=== PATIENT | female | born 1995 | race Caucasian/White ===

== ENCOUNTER 2021-05-17 15:54 | Emergency (ER) | payer OTHER ==
[2021-05-17 16:13] LABS: BASOPHILS % (AUTO) 0.3 %; EOSINOPHILS # (AUTO) 0.1 10^3/uL (0.0-0.7); EOSINOPHILS % (AUTO) 1.3 %; HCT - HEMATOCRIT 44.6 % (37.0-47.0); HGB - HEMOGLOBIN 14.7 g/dL (12.0-16.0); LYMPHOCYTES # (AUTO) 2.2 10^3/uL (1.5-3.5); MEAN CORPUSCULAR HEMOGLOBIN 30.2 pg (27.0-31.0); MEAN CORPUSCULAR VOLUME 91.8 fL (81.0-99.0); MEAN PLATELET VOLUME 9.9 fL (7.9-10.8); MONOCYTES # (AUTO) 0.8 10^3/uL (0.0-1.0); NEUTROPHILS # (AUTO) 6.5 10^3/uL (1.5-6.6); NEUTROPHILS % (AUTO) 67.1 %; PLT - PLATELET COUNT 293 10^3/uL (130-450); RED BLOOD COUNT 4.86 10^6/uL (4.20-5.40); RED CELL DISTRIBUTION WIDTH 12.3 % (12.0-15.0); WHITE BLOOD COUNT 9.8 x10^3/uL (4.8-10.8)
[2021-05-17 16:29] LABS: ALBUMIN 4.5 g/dL (3.2-5.5); ALBUMIN/GLOBULIN RATIO 1.4 (1.0-2.2); BILIRUBIN,TOTAL 0.6 mg/dL (0.2-1.0); CALCIUM 9.8 mg/dL (8.5-10.3); CREATININE 0.7 mg/dL (0.4-1.0); POTASSIUM 4.2 mmol/L (3.5-5.0); TOTAL PROTEIN 7.8 g/dL (6.7-8.2)
[2021-05-17 16:31] LABS: BILIRUBIN,URINE NEGATIVE (NEGATIVE); GLUCOSE, URINE (UA) NEGATIVE (NEGATIVE); KETONES,URINE (UA) NEGATIVE (NEGATIVE); LEUKOCYTE ESTERASE, URINE NEGATIVE (NEGATIVE); NITRITE,URINE NEGATIVE (NEGATIVE); OCCULT BLOOD,URINE NEGATIVE (NEGATIVE); PROTEIN,URINE NEGATIVE (NEGATIVE); UROBILINOGEN,URINE 0.2 (NORMAL) E.U./dL (NORMAL)
[2021-05-17 16:33] LABS: CLARITY,URINE CLEAR (CLEAR); HCG UR QUAL NEGATIVE
[2021-05-17 18:14] VITALS: BP 116/75
--- NOTE | 2021-05-17 18:26 | ED Physician Documentation ---
PD HPI ABD PAIN - Stated complaint Stated Complaint: BACK PX/NAUSEA - Chief complaint Chief Complaint: Abd Pain - History obtained from History obtained from: Patient - History of Present Illness Timing - onset: How many weeks ago (2) Timing - duration: Weeks (2) Timing - details: Gradual onset Pain level max: 6 Pain level now: 6 Quality: Aching, Pain Location: Suprapubic, Other (low back) Associated symptoms: No: Fever, Nausea, Vomiting, Hematemesis, Constipation, Melena, Hematochezia, Dysuria, Hematuria, Chest pain - Additional information Additional information: 25-year-old female presents to the emergency department with lower abdominal and back pain for the past 2 weeks. Comes and goes. Worse with movement, better with rest. No vaginal bleeding or discharge. She does not believe that there has been any STD exposure. No dysuria. She feels like she is urinating more frequently however. Review of Systems Constitutional: denies: Fever, Chills GI: denies: Diarrhea, Hematemesis, Bloody / black stool : reports: Frequency. denies: Dysuria, Hesitancy Skin: denies: Rash Musculoskeletal: denies: Neck pain Neurologic: denies: Focal weakness, Headache PD PAST MEDICAL HISTORY - Past Medical History Past Medical History: No - Past Surgical History Past Surgical History: No - Allergies Allergies/Adverse Reactions: Allergies Allergy/AdvReac Type Severity Reaction Status Date / Time No Known Drug Allergies Allergy Verified 05/17/21 15:59 - Social History Does the pt smoke?: No Smoking Status: Never smoker PD ED PE NORMAL - Vitals Vital signs reviewed: Yes - General General: Alert and oriented X 3, No acute distress - HEENT HEENT: Moist mucous membranes - Neck Neck: Supple, no meningeal sign - Cardiac Cardiac: RRR, Strong equal pulses - Respiratory Respiratory: No respiratory distress, Clear bilaterally - Abdomen Abdomen: Normal bowel sounds, Soft, Non tender, Non distended - Female Female : Pt declined - Back Back: No CVA TTP, No spinal TTP - Derm Derm: Warm and dry - Extremities Extremities: No edema, No calf tenderness / cord - Neuro Neuro: Alert and oriented X 3 - Psych Psych: Normal mood, Normal affect Results - Vitals Vitals: Vital Signs - 24 hr 05/17/21 05/17/21 15:55 17:59 Temperature 36.9 C Heart Rate 94 72 Respiratory 18 18 Rate Blood Pressure 149/109 H 116/75 O2 Saturation 100 99 Oxygen O2 Source Room air - Labs Labs: Laboratory Tests 05/17/21 05/17/21 05/17/21 16:08 16:08 16:18 WBC 9.8 RBC 4.86 Hgb 14.7 Hct 44.6 MCV 91.8 MCH 30.2 MCHC 33.0 RDW 12.3 Plt Count 293 MPV 9.9 Neut # (Auto) 6.5 Lymph # (Auto) 2.2 [place] # (Auto) 0.8 Eos # (Auto) 0.1 Baso # (Auto) 0.0 Absolute Nucleated RBC 0.00 Nucleated RBC % 0.0 Sodium 138 Potassium 4.2 Chloride 104 Carbon Dioxide 27 Anion Gap 7.0 BUN 16 Creatinine 0.7 Estimated GFR (MDRD) 103 Glucose 94 Calcium 9.8 Total Bilirubin 0.6 AST 20 ALT 16 Alkaline Phosphatase 49 Total Protein 7.8 Albumin 4.5 Globulin 3.3 Albumin/Globulin Ratio 1.4 Lipase 29 Urine Color YELLOW Urine Clarity CLEAR Urine pH 6.0 Ur Specific [place] >=1.030 H Urine Protein NEGATIVE Urine Glucose (UA) NEGATIVE Urine Ketones NEGATIVE Urine Occult Blood NEGATIVE Urine Nitrite NEGATIVE Urine Bilirubin NEGATIVE Urine Urobilinogen 0.2 (NORMAL) Ur Leukocyte Esterase NEGATIVE Ur Microscopic Review NOT INDICATED Urine Culture Comments NOT INDICATED Urine HCG, Qual NEGATIVE C. glabrata (PCR) C. krusei (PCR) Sherry species DNA T. vaginalis (PCR) Bact Vaginosis (PCR) 05/17/21 17:16 WBC RBC Hgb Hct MCV MCH MCHC RDW Plt Count MPV Neut # (Auto) Lymph # (Auto) [place] # (Auto) Eos # (Auto) Baso # (Auto) Absolute Nucleated RBC Nucleated RBC % Sodium Potassium Chloride Carbon Dioxide Anion Gap BUN Creatinine Estimated GFR (MDRD) Glucose Calcium Total Bilirubin AST ALT Alkaline Phosphatase Total Protein Albumin Globulin Albumin/Globulin Ratio Lipase Urine Color Urine Clarity Urine pH Ur Specific [place] Urine Protein Urine Glucose (UA) Urine Ketones Urine Occult Blood Urine Nitrite Urine Bilirubin Urine Urobilinogen Ur Leukocyte Esterase Ur Microscopic Review Urine Culture Comments Urine HCG, Qual C. glabrata (PCR) NEGATIVE C. krusei (PCR) NEGATIVE Sherry species DNA NEGATIVE T. vaginalis (PCR) NEGATIVE Bact Vaginosis (PCR) NEGATIVE PD MEDICAL DECISION MAKING - ED course Complexity details: reviewed results, re-evaluated patient, considered differential, d/w patient ED course: 25-year-old female presents to the emergency department with 2 weeks of lower abdominal and low back pain. Unclear etiology. Abdomen is soft, nontender nondistended here. Declines a pelvic exam. Labs are normal. Urinalysis is normal. Patient did self swab and these were sent to the lab. I will call her with the results. Patient will return if she worsens. She is comfortable going home at this time. Patient counseled regarding signs and symptoms for which I believe and urgent re-evaluation would be necessary. Patient with good understanding of and agreement to plan and is comfortable going home at this time This document was made in part using voice recognition software. While efforts are made to proofread this document, sound alike and grammatical errors may occur. [id number] - I called the patient with the results of her bacterial vaginitis swab. This is negative. The gonorrhea and Chlamydia testing will be back tomorrow. If this is also negative, I recommended to the patient that she have a pelvic ultrasound with her doctor to evaluate for any potential ovarian cyst or other pelvic abnormality. Also recommend she have a pelvic exam with her doctor or she return here for further evaluation. Departure - Departure Disposition: 01 Home, Self Care Clinical Impression: Abdominal pain Qualifiers: Abdominal location: lower abdomen, unspecified Qualified Code(s): R10.30 - Lower abdominal pain, unspecified Condition: Good Instructions: ED Abdominal Pain Female Non-Specific Abdominal Pain Follow-Up: MARISABEL PARSONS MD [Primary Care Provider] - Within 1 week Comments: I will call you tonight with the results of your swabs. Please return if you worsen. They should be back later this evening. Your laboratory work is normal. Your urinalysis is clear and your test is negative. Discharge Date/Time: 05/17/21 18:30
[2021-05-17 20:06] LABS: BACTERIAL VAGINOSIS DNA NEGATIVE (NEGATIVE); CANDIDA GLABRATA DNA NEGATIVE (NEGATIVE); CANDIDA GROUP DNA NEGATIVE (NEGATIVE); CANDIDA KRUSEI DNA NEGATIVE (NEGATIVE); TRICHOMONAS VAGINALIS DNA NEGATIVE (NEGATIVE)
[2021-05-17 23:05] LABS: CHLAMYDIA TRACHOMATIS DNA NEGATIVE (NEGATIVE); NEISSERIA GONORRHOEAE DNA NEGATIVE (NEGATIVE); TRICHOMONAS VAGINALIS DNA NEGATIVE (NEGATIVE)
== END 2021-05-17 18:30 | disposition home or self-care (01) ==
LOC: ED 15:54
DX: R10.30 Lower abdominal pain, unspecified (principal); M54.50 Low back pain, unspecified; R35.0 Frequency of micturition
CPT/HCPCS: 36415; 80053; 81001; 81003; 81025; 83690; 85025; 87086; 87491; 87591; 87661; 87801; 99283